=== PATIENT | male | born 1960 | race Caucasian/White ===

== ENCOUNTER 2018-08-02 14:00 | Outpatient (CLI) | payer BC ==
[~2018-08-02] VITALS: Ht 180.3 cm; Wt 79.9 kg
== END 2018-08-02 15:13 | disposition home or self-care (01) ==
LOC: PREOP 14:00
PROVIDERS: ATTEND Internal Medicine
DX: Z01.818 Encounter for other preprocedural examination (principal)

== ENCOUNTER 2018-08-04 07:10 | Day surgery (SDC) | payer BC ==
--- NOTE | 2018-08-03 13:34 | HISTORY AND PHYSICAL ---
DATE OF SERVICE: COLONOSCOPY HISTORY AND PHYSICIAL HISTORY OF PRESENT ILLNESS: The patient is a 58-year-old white male seen for wellness evaluation on 07/10. He has a family history for colon cancer. Several grandparents and one uncle have had colon cancer. He underwent colonoscopy just a little under 5 years ago at which time he had 1 tubular adenoma removed from the cecum via hot forceps. He did have some bleeding. As I recall about a week after the procedure, he was hospitalized, but did not receive any blood with resolution. He has had no further bleeding events and has felt well. There have been no changes in family history. He exercises and does not drink or smoke. 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 FAMILY HISTORY: As per HPI. PAST SURGICAL HISTORY: He has a history of what sounds like surgery on an undescended testicle in 1987. He has had no other surgeries. He still reports some intermittent dysphagia to meats if they are not chewed up well. He had undergone EGD 5 years ago for the same reason at which time, there was minimal erythema noted at the Z-line with no rings, webs, strictures or evidence for erosive esophagitis or extrinsic compression. There have been no changes in his symptoms and he has not had any problem with regurgitation, melena or bright red blood per rectum. PHYSICAL EXAMINATION: GENERAL: Reveals a well-appearing white male in no acute distress. VITAL SIGNS: Weight is normal at 175, giving him a BMI of 24, blood pressure 112/74. HEENT: Unremarkable. Ear canals clear. There is some otosclerosis bilaterally with some fenestration of the left eardrum. He denies any diminishment in hearing. NECK: Revealed no JVD, adenopathy or bruits. CHEST: Clear to auscultation. CARDIOVASCULAR: Reveals regular rate and rhythm without murmur, S3 or S4. ABDOMEN: Soft, supple without mass, organomegaly or tenderness. EXTREMITIES: Reveal no cyanosis, clubbing or edema. SKIN: Evaluation revealed no suspicious nevi. ASSESSMENT: The patient was set up for early screening colonoscopy due to family history of colon cancer in this case being several grandparents and an uncle, now the uncle is 71. He thinks the grandparents were later in age as well when diagnosed with colon cancer. Prep instructions with Suprep kit were given and questions were answered. He brought in a blood test including a lipid panel, which was ideal with total cholesterol of 152 and an HDL of 48 with triglyceride level of 92 and a blood sugar of 92 as well. PSA was obtained for screening purposes and digital rectal evaluation was deferred at the time of colonoscopy. Job ID: [id number] DocumentID: [id number] Dictated Date: 07/10/2018 15:21:13 Hat Maker Date: 07/10/2018 16:18:01 Dictated By: DILIP CALDWELL MD MTDD
[~2018-08-04] VITALS: Ht 180.3 cm; Wt 79.9 kg
--- OUTSIDE RECORDS SUMMARY | 2018-08-04 07:13 | XMS REPORT | Continuity of Care Document ---
Author Author [facility] Organization [facility] Address Unknown Phone Unavailable Allergies Active Description Code Type Severity Reaction Onset Reported/Identified Relationship to Patient Clinical Status Yes No Known Drug Allergies [id number] Drug Allergy Unknown N/A 08/02/2018 Medications There is no data. Problems Date Dx Coded Attending Type Code Diagnosis Diagnosed By 03/15/2014 DILIP CALDWELL MD Ot 211.3 BENIGN NEOPLASM LG BOWEL 03/15/2014 DILIP CALDWELL MD Ot 455.0 INT HEMORRHOID W/O COMPL 03/15/2014 DILIP CALDWELL MD Ot 530.5 DYSKINESIA OF ESOPHAGUS 03/15/2014 DILIP CALDWELL MD Ot 600.00 HYPERTROPHY (BENIGN) OF PROSTATE W/O URI 03/15/2014 DILIP CALDWELL MD Ot V76.51 SCREEN MAL NEOP-COLON 03/18/2014 DILIP CALDWELL MD Ot 285.1 AC POSTHEMORRHAG ANEMIA 03/18/2014 DILIP CALDWELL MD Ot 455.0 INT HEMORRHOID W/O COMPL 03/18/2014 DILIP CALDWELL MD Ot 458.29 OTHER IATROGENIC HYPOTENSION 03/18/2014 DILIP CALDWELL MD Ot 998.11 HEMOR COMPLIC A PROCEDURE 03/20/2014 DILIP CALDWELL MD Ot V72.84 03/28/2015 DILIP CALDWELL MD Ot V72.84 04/08/2015 DILIP CALDWELL MD Ot V72.84 06/15/2016 DILIP CALDWELL MD Ot V72.84 EXAM PRE-OPERATIVE NOS 08/01/2018 DILIP CALDWELL MD Ot Z01.818 ENCOUNTER FOR OTHER PREPROCEDURAL EXAMIN 08/01/2018 DILIP CALDWELL MD Ot Z01.818 ENCOUNTER FOR OTHER PREPROCEDURAL EXAMIN 08/02/2018 DILIP CALDWELL MD Ot Z01.818 ENCOUNTER FOR OTHER PREPROCEDURAL EXAMIN 08/02/2018 DILIP CALDWELL MD Ot Z01.818 ENCOUNTER FOR OTHER PREPROCEDURAL EXAMIN Procedures There is no data. Results There is no data. Encounters ACCT No. Visit Date/Time Discharge Status Pt. Type Provider Facility Loc./Unit Complaint [id number] 08/02/2018 14:00:00 08/02/2018 15:13:00 DIS Outpatient DILIP CALDWELL MD [facility] PREOP COLONOSCOPY [id number] 03/17/2014 19:08:00 03/18/2014 18:45:00 DIS Inpatient DILIP CALDWELL MD [facility] ICU ACUTE LOWER GI BLEED S/P COLON POLYPECTOMY [id number] 03/15/2014 07:15:00 03/15/2014 11:00:00 DIS Outpatient DILIP CALDWELL MD [facility] SDC SCREENING [id number] 03/14/2014 07:54:00 03/14/2014 23:59:59 CLS Outpatient DILIP CALDWELL MD [facility] PREOP SCREENING [id number] 08/04/2018 08:00:00 PEN Preadmit DILIP CALDWELL MD [facility] ENDO SCREENING
[2018-08-04] MEDS ORDERED: D5 LR IV SOLUTION 1,000 ML IV STA (07:20)
[2018-08-04] MEDS ORDERED: D5 LR IV SOLUTION 1,000 ML IV ONE (07:22)
[2018-08-04] MEDS ORDERED: fentaNYL INJECTION 100 MCG/2 ML AMP IVP ONE (07:30)
[2018-08-04] MEDS ORDERED: MIDAZOLAM 2 MG/2 ML (VERSED) VIAL IVP ONE (07:30)
[2018-08-04] MEDS ORDERED: LIDOCAINE JELLY 2% 6 ML SYRINGE MM PRN (07:30)
[2018-08-04 07:35] VITALS: BP 106/76
[2018-08-04] MEDS ORDERED: fentaNYL INJECTION 100 MCG/2 ML AMP ONE (07:47)
[2018-08-04] MEDS ORDERED: MIDAZOLAM 2 MG/2 ML (VERSED) VIAL ONE ×2 (07:47)
[2018-08-04] MEDS ORDERED: LIDOCAINE JELLY 2% 6 ML SYRINGE ONE (07:47)
--- NOTE | 2018-08-04 08:22 | Pre-Op Note & Conscious Sedat ---
Pre-Operative Progress Note H&P Reviewed The H&P was reviewed, patient examined and no changes noted. Date H&P Reviewed: Aug 04, 2018 Time H&P Reviewed: 07:40 Conscious Sedation Pre-Proced ASA Score 1 For ASA 3 and 4: Consider anesthesia and medical clearance. Also, for patients with a history of failed moderate sedation consider anesthesia. Airway Lungs Heart ASA score ASA 1: a normal healthy patient ASA 2: a patient with a mild systemic disease (mid diabetes, controlled hypertension, obesity ASA 3: a patient with a severe systemic disease that limits activity (angina , COPD, prior Myocardial infarction) ASA 4: a patient with an incapacitating disease that is a constant threat to life (CHF, renal failure) ASA 5: a moribund patient not expected to survive 24 hrs. (ruptured aneurysm) ASA 6: a declared brain- patient whose organs are being harvested. For emergent operations, add the letter E after the classification Mallampati Classification Grade 2 Sedation Plan Analgesia, Amnesia, Plan communicated to team members, Discussed options with patient/fam, Discussed risks with patient/fam The patient is an appropriate candidate to undergo the planned procedure, sedation, and anesthesia. The patient immediately re-assessed prior to indication. DILIP CALDWELL MD Aug 04, 2018 08:22
[2018-08-04 08:25] VITALS: BP 107/71
[2018-08-04 08:45] VITALS: BP 95/62
[2018-08-04 11:56] VITALS: BP 105/66
--- NOTE | 2018-08-04 14:33 | OPERATIVE REPORT ---
DATE OF SERVICE: 08/04/2018 COLONOSCOPY SUMMARY INDICATION FOR THE PROCEDURE: Screening colonoscopy. The patient was placed in the left lateral decubitus position. Prior to undergoing colonoscopy, digital rectal evaluation was performed. Anal sphincter tone was normal and the perianal reflex was intact. Prostate was normal in size, anodular, nontender to digital inspection. No abnormalities were noted on digital inspection of anal canal or distal rectal vault. The colonoscope was inserted into the rectum and under direct visualization advanced to cecum. The cecum was identified by identification of the ileocecal valve and cecal strap. Photographic documentation was obtained. Careful inspection was made as the colonoscope was withdrawn. The patient tolerated the procedure well. FINDINGS: No evidence for internal or external hemorrhoids and the rectum, sigmoid colon, descending colon, splenic flexure, transverse colon, hepatic flexure, ascending colon and cecum were unremarkable. No evidence for neoplasia, diverticular disease or vascular malformation were noted. ASSESSMENT AND PLAN: Normal colonoscopy to the cecum. We will be abdicating consideration for repeat screening colonoscopy likely in 10 years. Job ID: [id number] DocumentID: [id number] Dictated Date: 08/04/2018 08:28:23 Social Services Director Date: 08/04/2018 14:32:49 Dictated By: DILIP CALDWELL MD
== END 2018-08-04 08:45 | disposition home or self-care (01) ==
LOC: ENDO 07:10
PROVIDERS: ATTEND Internal Medicine
DX: Z12.11 Encounter for screening for malignant neoplasm of colon (principal); Z80.0 Family history of malignant neoplasm of digestive organs; Z86.010 Personal history of colon polyps

== ENCOUNTER → 2019-08-27 | Outpatient (CLI) | payer BC ==
--- NOTE | 2019-08-27 11:35 | Diagnostic Imaging Report ---
EXAM: CT Abdomen and Pelvis Without Intravenous Contrast. INDICATION: Prostate CA. No previous for comparison. FINDINGS: The lung bases are clear. Noncontrasted images show normal appearing liver, gallbladder, pancreas and spleen. The adrenal glands are not enlarged. Kidneys appear normal. The stomach and small bowel are not distended. No bowel wall thickening. The colon shows normal stool and gas pattern. No evidence of bowel wall thickening. No evidence of obstructive process. There is gas and stool to the rectum. The prostate shows mild enlargement. Bladder is not distended. No intra-abdominal adenopathy of pathologic size. No blastic or lytic bony lesion. Degenerative changes noted throughout the discs and facets. No evidence of pars defect. IMPRESSION: 1. No changes are demonstrated to suggest metastatic disease. 2. No acute abnormalities demonstrated. Dictated by: Dictated on workstation # [id number]
--- NOTE | 2019-08-27 13:07 | Diagnostic Imaging Report ---
RADIOPHARMACEUTICAL: 26.6 mCi Tc-99m -MDP IV INDICATION: Prostate cancer COMPARISON: CT from the same date TECHNIQUE: Anterior and posterior whole body images. FINDINGS: Focal radiotracer activity is noted within the right antecubital fossa, consistent with radiotracer extravasation. This extravasation does slightly decrease the sensitivity of this examination. No suspicious focal radiotracer activity. Degenerative activity is noted involving the shoulders and right ankle. The bilateral kidneys are visualized. IMPRESSION: 1. No evidence to suggest osteoblastic osseous metastatic disease. Dictated by: Dictated on workstation # [id number]
== END ==
LOC: CARD 10:25
PROVIDERS: ATTEND Urology
DX: C61 Malignant neoplasm of prostate (principal)
CPT/HCPCS: 74176; 78306

== ENCOUNTER 2020-12-20 07:29 | Emergency (ER) | payer BC ==
[~2020-12-20] VITALS: Ht 180 cm; Wt 79.3 kg
--- NOTE | 2020-12-20 08:02 | ED Upper Extremity ---
General Chief Complaint: Upper Extremity Stated Complaint: R SHOULDER PAIN Nursing Triage Note: pt presents to ed with complaints of r shoulder injury this am when his dog tripped him. Source: patient Exam Limitations: no limitations (TASHA ZARATE) History of Present Illness Date Seen by Provider: Dec 20, 2020 Time Seen by Provider: 07:45 Initial Comments Pt presents to ED with at bedside with complaints of R shoulder pain. He states that 15min prior to arrival, he was at home when he fell onto his R shoulder from a height of 2 steps when he was letting his dogs out and inadvertently tripped him. Denies hitting his head or losing consciousness. He rates the pain 5/10 to his R shoulder, worse with movement, alleviated by remaining still. Denies radiation, numbness/tingling, loss of sensation in his RUE. He hasnt taken anything for the pain, last meal last night about 9-10pm. Denies chest pain, SOB, nausea, vomiting. Location Injury Occurred: Home Onset: just prior to arrival Severity: moderate Pain/Injury Location: right shoulder Method of Injury: fell Modifying Factors: Improves With Immobilization (alleviates), Improves With Movement (aggravates) Associated Symptoms: None (TASHA ZARATE) Allergies and Home Medications Allergies Coded Allergies: No Known Drug Allergies (Unverified , 08/02/18) Home Medications No Active Prescriptions or Reported Meds Patient Home Medication List Home Medication List Reviewed: Yes (TASHA ZARATE) Review of Systems Constitutional: No chills, No dizziness, No fever EENTM: No hearing loss, No vision loss Respiratory: No cough, No hemoptysis, No short of breath Cardiovascular: No chest pain, No edema Gastrointestinal: No abdominal pain, No constipation, No diarrhea Genitourinary: No dysuria, No frequency, No hematuria Musculoskeletal: No back pain; joint pain (R shoulder) Skin: No change in color, No change in hair/nails Psychiatric/Neurological: Denies Headache, Denies Numbness, Denies Paresthesia, Denies Tingling (TASHA ZARATE) All Other Systems Reviewed Negative Unless Noted: Yes (TASHA ZARATE) Past Lbxqhzq-Snzmky-Mtxows Hx Patient Social History Tobacco Use?: No Substance use?: No Alcohol Use?: Yes Alcohol Frequency: Rarely Pt feels they are or have been: No (ELLIOTLocalSenseTASHA Share Your Brain STUDENT) Immunizations Up To Date Tetanus Booster (TDap): Unknown Second COVID19 Vaccination Munir: august 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: [employer] (ELLIOTLocalSenseTASHA Tastebuds) Seasonal Allergies Seasonal Allergies: No (ELLIOTLocalSenseTASHA Tastebuds) Past Medical History Surgery/Hospitalization HX: pmh: [facility] Surgeries: No Respiratory: No Currently Using CPAP: No Currently Using BIPAP: No Cardiac: No Neurological: No Reproductive Disorders: No Sexually Transmitted Disease: No HIV/AIDS: No Genitourinary: No Gastrointestinal: No Gastrointestinal Bleed Musculoskeletal: No Endocrine: No HEENT: Yes (GLASSES) Loss of Vision: Bilateral Hearing Impairment: Denies Cancer: No Psychosocial: No Integumentary: No Blood Disorders: No Adverse Reaction/Blood Tranf: No (HAS HAD BLOOD WITH NO REACTION) (ELLIOTAffectivaTASHA Tastebuds) Family Medical History Cancer (ELLIOTShopnlist) Physical Exam Vital Signs Vital Signs - First Documented 12/20/20 07:38 Temp 35.3 Pulse 49 Resp 18 B/P (MAP) 114/83 (93) Pulse Ox 96 (JHON,BRIAN J) Vital Signs Capillary Refill : Less Than 3 Seconds (ELLIOTLocalSenseTASHA Tastebuds) Height, Weight, BMI Height: 5'11.00" Weight: 176lbs. 2.0oz. 79.523750ii; 24.00 BMI Method:Stated General Appearance: WD/WN, mild distress HEENT: PERRL/EOMI, normal ENT inspection, pharynx normal Neck: non-tender, full range of motion, supple, normal inspection Cardiovascular: normal peripheral pulses, regular rate, rhythm, no edema, no murmur Respiratory: chest non-tender, lungs clear, normal breath sounds, no respiratory distress, no accessory muscle use Gastrointestinal: normal bowel sounds, non tender, soft Back: normal inspection, no CVA tenderness, no vertebral tenderness Shoulder: asymmetry, deformity (bulging scapula superiorly), limited ROM (pt comfortable with RUE in adduction/flexion, pain with movcement), pain Elbow/Forearm: normal inspection, non-tender, no evidence of injury, normal ROM Wrist: Yes normal inspection, Yes non-tender, Yes no evidence of injury, Yes normal ROM Hand: normal inspection, non-tender, no evidence of injury, normal ROM Neurologic/Tendon: normal sensation, normal motor functions, responds to pain Neurologic/Psychiatric: no motor/sensory deficits, alert, normal mood/affect, oriented x 3 Skin: normal color, warm/dry, other (abrasions to lateral R knee) Lymphatic: no adenopathy (TASHA ZARATE MED STUDENT) Progress/Results/Core Measures Results/Orders My Orders Orders - BRIAN FERREIRA Shoulder, Right, 3 Views (12/20/20 07:50) (BRIAN FERREIRA) Vital Signs/I&O 12/20/20 07:38 Temp 35.3 Pulse 49 Resp 18 B/P (MAP) 114/83 (93) Pulse Ox 96 (BRIAN FERREIRA) Blood Pressure Mean: 93 Progress Progress Note : Time: 09:07 Progress Note Patient has continued to decline anything for pain. He is familiar with Dr. Coronado and plans to follow-up with him so we will send a copy of our note. The patient will be placed in a sling has been given instructions for passive range of motion exercises 4 times a day and ice for the next 2 days. Questions were answered. I attest that I saw this patient alongside the medical student and agree with h is documented history, physical exam and review of systems except as otherwise noted. (BRIAN FERREIRA) Diagnostic Imaging Diagonstic Imaging: Xray Plain Films/CT/US/NM/MRI: other (Right shoulder) Comments [facility], [place] NAME: [facility] REC#: [id number] PT STATUS: REG ER : 1960 PHYSICIAN: BRIAN FERREIRA MD ADMIT DATE: 12/20/20/ER Draft Date of Exam:12/20/20 SHOULDER, RIGHT, 3 VIEWS EXAM: Right shoulder radiograph EXAM DATE: 12/20/2020 COMPARISON: None. HISTORY: Right shoulder pain. TECHNIQUE: 3 views of the right shoulder. FINDINGS: There is a mildly displaced fracture of the distal right clavicle. There is at least 1.9 cm of superior dislocation. The humeral head is situated appropriately within the glenohumeral joint. No acute fracture seen within the humerus or glenohumeral joint. Visualized right lung is clear. Soft tissues are unremarkable. IMPRESSION: Mildly displaced acute fracture of the distal right clavicle. Dictated on workstation # [id number] Dict: 12/20/20 0841 Trans: 12/20/20 0843 [id number] [id number] Interpreted by: AMAYA AMES DO Electronically signed by: Reviewed: Reviewed by Me (BRIAN FERREIRA) Departure Impression Primary Impression: Fx clavicle, acrom end-closed Qualified Codes: S42.031A - Displaced fracture of lateral end of right clavicle, initial encounter for closed fracture Disposition: HOME, SELF-CARE Condition: Stable Departure-Patient Inst. Decision time for Depature: 09:07 (BRIAN FERREIRA) Referrals: DILIP CALDWELL MD (PCP/Family) Primary Care Physician SOSA CORONADO MD Patient Instructions: Broken Collarbone (DC), Passive Range of Motion Exercises, Neck and Shoulders Add. Discharge Instructions: Ice for 20 minutes every 2 hours to reduce swelling and pain for the first 2 to 3 days applied directly over the site of pain. Topical creams such as icy hot, Biofreeze Blue emu etc. Tylenol 1000 mg every 8 hours as necessary for pain. Ibuprofen 800 mg every 8 hours as necessary for pain. Hydrocodone 1 tablet every 6 hours as necessary for severe pain keeping you from being functional. Hydrocodone will cause constipation so I recommend MiraLAX every day that you use hydrocodone. Follow-up with the orthopedic surgeon of your choice within the next week. Wear the sling throughout the day. Take it off at least 3-4 times a day to move your arm through range of motion exercises like we demonstrated. All discharge instructions reviewed with patient and/or family. Voiced unders tanding. Scripts Hydrocodone/Acetaminophen (Hydrocodone-Acetamin 5-325 mg) 1 Each Tablet 1 TAB PO Q6H PRN for PAIN-MODERATE (5-7), #14 TAB 0 Refills Prov: BRIAN FERREIRA 12/20/20 Copy Copies To 1: SOSA CORONADO MD, JOHNNY MED STUDENT Dec 20, 2020 08:02 BRIAN FERREIRA Dec 20, 2020 09:12
--- NOTE | 2020-12-20 08:43 | Diagnostic Imaging Report ---
EXAM: Right shoulder radiograph EXAM DATE: 12/20/2020 COMPARISON: None. HISTORY: Right shoulder pain. TECHNIQUE: 3 views of the right shoulder. FINDINGS: There is a mildly displaced fracture of the distal right clavicle. There is at least 1.9 cm of superior dislocation. The humeral head is situated appropriately within the glenohumeral joint. No acute fracture seen within the humerus or glenohumeral joint. Visualized right lung is clear. Soft tissues are unremarkable. IMPRESSION: Mildly displaced acute fracture of the distal right clavicle. Dictated by: Dictated on workstation # [id number]
[2020-12-20] MEDS ORDERED: ACHD5005 PO (09:11)
[2020-12-20 09:19] VITALS: BP 115/80
== END 2020-12-20 09:19 | disposition home or self-care (01) ==
LOC: EDUNIT# 07:29 → ER 07:30
DX: S42.031A Displaced fracture of lateral end of right clavicle, initial encounter for closed fracture (principal); W17.89XA Other fall from one level to another, initial encounter; Y92.009 Unspecified place in unspecified non-institutional (private) residence as the place of occurrence of the external cause
CPT/HCPCS: 73030; 99283; A4565